=== PATIENT | male | born 1950 | race Hispanic/Latino ===

== ENCOUNTER 2020-09-05 00:30 | Inpatient (IN) | payer OTHER ==
[2020-09-05 01:00] LABS: #Basophils 0.1 thou/uL (0.0-0.2); #Eosinphils 0.2 thou/uL (0.0-0.7); #Lymphocytes 2.2 thou/uL (1.20-3.40); #Monocytes 0.6 thou/uL (0.11-0.59); #Neutrophils 6.9 thou/uL (1.40-6.50); %Basophils 0.9 % (0.0-1.0); %Eosinophils 1.5 % (0.0-10.0); %Lymphocytes 22.5 % (21.0-51.0); %Monocytes 6.2 % (0.0-10.0); Hemoglobin 14.4 g/dL (14.0-18.0); Mean Corpuscular HGB CONC 33.1 g/dL (32.0-36.0); Mean Corpuscular Hemoglobin 29.7 pg (27.0-31.0); Mean Corpuscular Volume 89.7 fL (78.0-98.0); Mean Platelet Volume 9.6 fL (7.4-10.4); Platelet Count 220 thou/uL (130-400); RBC Distribution Width 12.8 % (11.5-14.5); Red Blood Cell (RBC) Count 4.83 mill/uL (4.70-6.10)
[2020-09-05 01:09] LABS: INR-International Normal Ratio 1.1; Prothrombin Time 14.8 sec (12.0-14.7)
[2020-09-05 01:24] LABS: Chloride 101 mmol/L (98-107); Potassium 4.8 mmol/L (3.5-5.1); Sodium 139 mmol/L (136-145)
[2020-09-05 01:28] LABS: Albumin 3.9 g/dL (3.4-4.8)
[2020-09-05 01:29] LABS: Calcium 8.9 mg/dL (7.8-10.44)
[2020-09-05 01:30] LABS: Glucose 289 mg/dL (83-110)
[2020-09-05 01:31] LABS: Carbon Dioxide 26 mmol/L (23-31); Globulin 3.9 g/dL (2.4-3.5); Protein, Total 7.8 g/dL (5.8-8.1)
[2020-09-05 01:32] LABS: Bilirubin, Total 0.5 mg/dL (0.2-1.2)
[2020-09-05 01:33] LABS: Alkaline Phosphatase 101 U/L (40-110); Calc. Creatinine Clearance 0 mL/min (70-130)
[2020-09-05 01:34] LABS: BUN (Urea Nitrogen) 23 mg/dL (8.4-25.7)
[2020-09-05 01:35] LABS: AST (SGOT) 136 U/L (5-34)
[2020-09-05 01:36] LABS: ALT (SGPT) 35 U/L (8-55)
[2020-09-05] MEDS ORDERED: Ondansetron PF 4 MG/2 ML Vial IVP PRN (01:39)
[2020-09-05] MEDS ORDERED: Acetaminophen 325 MG TAB PO PRN (01:39)
[2020-09-05] MEDS ORDERED: Nitroglycerin 0.4 MG TAB (25 Tab Bottle) SL PRN (01:39)
[2020-09-05] MEDS ORDERED: Ondansetron ODT 4 MG TAB PO PRN (01:39)
[2020-09-05] MEDS ORDERED: Acetaminophen 650 MG Suppository PR PRN (01:39)
[2020-09-05 01:45] LABS: Anion Gap 17 mmol/L (10-20)
--- NOTE | 2020-09-05 01:45 | PDOC.HHP ---
Hospitalist HPI - History of Present Illness chest pain History of Present Illness: Case of an 70y/o male with a pmhx of cad, atrial fibrillation, DM, hld copd and htn who comes to hospital due to chest pain. patient states he was on his usual state of health until today when he started with some restrosternal chest pain 8/10 on intensity that radiated to both arm associated with sob, denies palpitatios or diaphoresis. At the ED patient was evaluated and diagnosed with a nstemi for which hospitalist was called for further evaluation and management. Hospitalist ROS - Review of Systems All other systems reviewed; all pertinent +/- noted in HPI/Subj Hospitalist History - Past Surgical History Past Surgical History: reports: Cholecystectomy, CABG - Family History Family History: reports: diabetes mellitus, hypertension - Social History Smoking Status: Former smoker Alcohol: reports: None Drugs: reports: none Living Situation: With Family - Exam General Appearance: NAD, awake alert Eye: PERRL, anicteric sclera ENT: normocephalic atraumatic, no oropharyngeal lesions Neck: supple, symmetric, no JVD, no thyromegaly Heart: RRR, no murmur, no gallops Respiratory: CTAB, no wheezes, no rales Gastrointestinal: soft, non-tender, non-distended Extremities: no cyanosis, no clubbing, no edema Skin: normal turgor, no lesions, no rashes Neurological: cranial nerve grossly intact, normal sensation to touch Musculoskeletal: normal tone, normal strength, no muscle wasting Psychiatric: normal affect, normal behavior, A&O x 3 Hospitalist Results - Labs Result Diagrams: 09/05/20 00:52 09/05/20 00:52 Lab results: WBC 10.0 thou/uL (4.8-10.8) 09/05/20 00:52 Hgb 14.4 g/dL (14.0-18.0) 09/05/20 00:52 Hct 43.4 % (42.0-52.0) 09/05/20 00:52 MCV 89.7 fL (78.0-98.0) 09/05/20 00:52 Plt Count 220 thou/uL (130-400) 09/05/20 00:52 Neutrophils % 69.0 % (42.0-75.0) 09/05/20 00:52 Sodium 139 mmol/L (136-145) 09/05/20 00:52 Potassium 4.8 mmol/L (3.5-5.1) 09/05/20 00:52 Chloride 101 mmol/L (98-107) 09/05/20 00:52 Carbon Dioxide 26 mmol/L (23-31) 09/05/20 00:52 BUN 23 mg/dL (8.4-25.7) 09/05/20 00:52 Creatinine 1.51 mg/dL (0.7-1.3) H 09/05/20 00:52 Glucose 289 mg/dL (83-110) H 09/05/20 00:52 Calcium 8.9 mg/dL (7.8-10.44) 09/05/20 00:52 Total Bilirubin 0.5 mg/dL (0.2-1.2) 09/05/20 00:52 AST 136 U/L (5-34) H 09/05/20 00:52 ALT 35 U/L (8-55) 09/05/20 00:52 Alkaline Phosphatase 101 U/L (40-110) 09/05/20 00:52 Serum Total Protein 7.8 g/dL (5.8-8.1) 09/05/20 00:52 Albumin 3.9 g/dL (3.4-4.8) 09/05/20 00:52 Hospitalist H&P A/P - Problem (1) NSTEMI (non-ST elevated myocardial infarction) Code(s): I21.4 - NON-ST ELEVATION (NSTEMI) MYOCARDIAL INFARCTION Status: Acute (2) HTN (hypertension) Code(s): I10 - ESSENTIAL (PRIMARY) HYPERTENSION Status: Acute (3) Diabetes Code(s): E11.9 - TYPE 2 DIABETES MELLITUS WITHOUT COMPLICATIONS Status: Acute (4) CAD (coronary artery disease) Code(s): I25.10 - ATHSCL HEART DISEASE OF [place] CORONARY ARTERY W/O ANG PCTRS Status: Acute (5) Atrial fibrillation Code(s): I48.91 - UNSPECIFIED ATRIAL FIBRILLATION Status: Acute (6) HLD (hyperlipidemia) Code(s): E78.5 - HYPERLIPIDEMIA, UNSPECIFIED Status: Acute - Plan Plan: 70y/o male w the stated pmhx who present with nstemi nstemi - ekg w/o st ischemic changes - initial troponin 0.04 f/u 2.9 - started on cad protective medication with beta bonifacio acei, statin and AC w elliquis will switch to lovenox for possible LHC - cardiology consulted - 2d echo - cardiac monitoring - starting protective medication w beta block,acei statin + asa dm - long acting insulin - acc+ss atrial fibrillation - in adequate vr - on AC w elliquis, will switch to lovenox for now
[2020-09-05] MEDS ORDERED: Nitroglycerin 2% Ointment 1 INCH/1 GM Packet ONE (02:19)
[2020-09-05] MEDS ORDERED: Aspirin 325 MG TAB PO SCH (02:30)
[2020-09-05] MEDS ORDERED: Sodium Chloride 0.9% 1,000 ML IV SCH (04:00)
[2020-09-05] MEDS ORDERED: Dextrose 50% Abboject 50 ML SYRINGE SLOW IVP PRN (04:53)
[2020-09-05] MEDS ORDERED: Dextrose 5% in Water 1,000 ML IV PRN (04:53)
[2020-09-05] MEDS ORDERED: HumaLOG 300 UNITS/3 ML VIAL SC PRN (04:53)
[2020-09-05 05:47] LABS: Hemoglobin A1c 8.1 % (4.0-6.0)
[2020-09-05 06:03] LABS: Cardiac Risk 4.3 (Less than 4.5)
[2020-09-05] MEDS ORDERED: Carvedilol 3.125 MG TAB PO SCH (08:00)
[2020-09-05] MEDS ORDERED: HumaLOG 300 UNITS/3 ML VIAL ONE (08:56)
[2020-09-05] MEDS ORDERED: Enoxaparin Sodium 100 MG/ML SYRINGE SC SCH (09:00)
[2020-09-05] MEDS ORDERED: Aspirin 325 mg Enteric Coated Tablet PO SCH (09:00)
[2020-09-05] MEDS ORDERED: Insulin Glargine 50 UNITS in Pre-Filled Syringe 1 EACH SC SCH ×2 (09:00→21:00)
[2020-09-05] MEDS ORDERED: Enoxaparin Sodium 100 MG/ML SYRINGE ONE (09:43)
[2020-09-05] MEDS ORDERED: Communication Order-Pharmacy FS SCH (11:15)
--- NOTE | 2020-09-05 12:03 | CON ---
DATE OF CONSULTATION: 09/05/2020 INDICATIONS FOR CONSULTATION: A 70-year-old gentleman with a yuv-SY-[id number] elevation myocardial infarction. HISTORY OF PRESENT ILLNESS: This is a very unfortunate 70-year-old gentleman, who has had a history of coronary artery disease in the past. He underwent quadruple bypass in 2003, at which time, he had a myocardial infarction. He had been doing very well since his bypass surgery and denied any pain until yesterday. He was sitting at home apparently yesterday and developed a sudden onset of sharp stabbing chest pain which radiated across his chest. He became short of breath. He has had some coughing recently with some shortness of breath. He started coughing and he took some cough syrup and then about 5 minutes later when the chest pain started and radiated to his chest and shoulders. He presented to the emergency room at [place], where cardiac enzymes were slightly elevated at 0.041, the second set was 2.97, then he was transferred to [facility] in [place] and here the CPK MB is 15. EKG still showed a right bundle branch block, but no acute ST-segment changes and the chest pain had resolved. At this time, he remains stable. He has no chest pain. The another set of the enzymes are still pending. Last year, he had an episode of bronchitis and pneumonia and also had an episode of atrial fibrillation. He did undergo ablation of the atrial fibrillation and has remained in sinus since that time. PAST MEDICAL HISTORY: Significant for coronary artery disease, insulin-dependent diabetes, hypercholesterolemia, hypertension, COPD. He has had what appears to be an ablation of a left lower extremity vein or venous ablation. He had bypass surgery in 2003 with quadruple bypass, uncertain as to which vessels are bypassed. He has had a cholecystectomy. He has had right ankle surgery. He has some questionable history of a clotting disorder. He had myocardial infarction in 2003. SOCIAL HISTORY: There is no history of alcohol or tobacco abuse. He is a retired sales warehouse driver. He is . FAMILY HISTORY: Noncontributory. ALLERGIES: HE IS SUPPOSEDLY ALLERGIC TO ROSUVASTATIN, IS NOT TAKING ANY CHOLESTEROL MEDICINES AT THIS TIME. MEDICATIONS: His list of medications prior to admission, his home medications include, 1. Albuterol. 2. Fluticasone. 3. . 4. He also takes omeprazole. 5. Edarbyclor 40 mg b.i.d. 6. Aspirin 81 mg a day. 7. He takes Eliquis 5 mg b.i.d. 8. Cholecalciferol. 9. Cyanocobalamin. 10. Furosemide 40 mg a day. 11. Gemfibrozil, he takes 600 mg a day. 12. Hydralazine 50 mg b.i.d. 13. Loratadine 10 mg a day. 14. He takes insulin with FlexPen 25 units before each meal. 15. He also takes detemir insulin long-acting 88 units in the morning and 94 units in the evening. REVIEW OF SYSTEMS: He wears glasses. He has significant sinus drainage. He complains of shortness of breath. Occasional chest discomfort as noted, but usually he has been doing quite stable. He has had lower extremity edema. Otherwise, 12-point review of systems unremarkable. PHYSICAL EXAMINATION: GENERAL: Reveals an elderly gentleman, in no acute distress. VITAL SIGNS: Blood pressure is 156/72. Heart rate is in the 70s, it shows a sinus rhythm with a right bundle-branch block and left posterior fascicular block. HEENT: Shows head to be normocephalic and atraumatic. Carotid pulses are present. There were no bruits. CHEST: Clear to auscultation without rales, rhonchi, or wheezing. CARDIOVASCULAR: Revealed a regular rate and rhythm with normal S1, S2. I cannot hear an S3 nor an S4. No other any significant murmurs, heaves, thrills, bruits, or rubs. ABDOMEN: Shows morbid obesity with positive bowel sounds. No organomegaly or masses were noted. EXTREMITIES: Femoral pulses are present. Extremities showed no clubbing or cyanosis. He does have some lower extremity edema, mainly around the ankle areas. Pedal pulses are difficult to palpate. NEUROLOGIC: The patient appears to be fully intact without any gross focal motor deficits. LABORATORY DATA: Shows a WBC of 10, hemoglobin 14.4, platelet count was 220,000. BNP was 307. Hemoglobin A1c is 8.1. Troponin I as noted above. Sodium is 139, potassium 4.8, BUN was 23 with a creatinine of 1.51. Blood sugar was 289 with LDL of 80. EKG shows right bundle branch block, left posterior fascicular block, occasional PVCs, and a first-degree AV heart block. IMPRESSION: 1. A 70-year-old gentleman with eov-[id number]-[id number] elevation myocardial infarction, who is status post bypass surgery in 2003. At this time, he remains stable. His EKG does not show any acute ST-segment changes at this time. We will continue to monitor the cardiac enzymes. He probably will best be served by undergoing a cardiac catheterization once he is more stable and we will try to give IV fluids to decrease the risk of nephrotoxicity from the contrast material since his creatinine is 1.5, earlier the creatinine was actually more elevated and has some improvement already, previously in the emergency room in [place] creatinine was 1.69. We will start him on some IV fluids or encourage fluids and plan for cardiac catheterization on Tuesday to eventually evaluate his coronary artery status since he has had a [id number]-RG-[id number] elevation myocardial infarction. We will also obtain an echocardiogram for evaluation of left ventricular systolic function. 2. History of diabetes. Apparently, this is very poorly controlled. He has been somewhat noncompliant with medicines or with his diet. 3. Hypertension. He has had significant problems with hypertension. This is obviously not under very good control. He said his average blood pressure is 165/70. We will need to try to reinstate his medications and see if we can find to lower his blood pressure. 4. Dyslipidemia. At this time, the LDL level is reasonable at 80. Would prefer it will be certainly less than 70 with diabetes, but it at least is reasonable with 80. 5. History of coronary artery disease and most likely he has suffered a [id number]-GH-[id number] elevation myocardial infarction. Again, we will plan for cardiac catheterization on Tuesday. 6. Chronic obstructive pulmonary disease, he uses inhalers. We will continue these medicines. Please note that the patient did have an episode in the emergency room. It was felt to be possible torsades. However, on close evaluation of the EKG and the tracings, there is evidence of QRS not torsades. We will continue to monitor the patient very carefully. Also, [facility]. He has recently moved to [place] from [place] and most likely we will try to find new physicians in this area. 7. History of atrial fibrillation, which was treated with an ablation. At this time, he remains in sinus. There is no indication of atrial fibrillation at this time. Job ID: [id number]
[2020-09-05 12:37] LABS: SARS-CoV-2 MS2 Positive; SARS-CoV-2 N Gene Negative; SARS-CoV-2 S Gene Negative; SARS-CoV-2 by NAA Not Detected (NotDetected); SARS-CoV-2 orf1ab Negative
[2020-09-05 12:42] LABS: Troponin I 37.399 ng/mL (< 0.028)
--- NOTE | 2020-09-05 19:04 | PDOC.DS.DS ---
Provider - Provider Date of Admission: 09/05/20 03:26 Date of Discharge: 09/05/20 Admitting Provider: Ruben Maciel Primary Care Physician: [facility], [place] Course - Hospital Course Hospital Course: This is a 70-year-old male patient for history of A. fib, currently treated status post CABG in 2003 who was transferred from [place] on account of NSTEMI. At [place] he was noted to have right bundle branch block with elevated troponin 0 0.04 with repeat at 2.9. At presentation he had troponin elevated to 15 and repeat was 37.39 He was started on Lovenox and cardiology evaluated with plans to do cardiac catheterization once he stabilizes. However prior to transition here the ID had been contacted and it was noted that patient had a bed. Since he is on ER hold here decision was made to transfer him to ID where he has a bed for further management. On evaluation patient was essentially pain-free, with stable vitals and was deemed stable enough to discharge. Patient was discharged to ID in [place] Resuscitation Status: 09/05/20 01:39 Resuscitation Status Routine Resuscitation Status: FULL: Full Resuscitation - Labs Lab Results: 09/05/20 00:52 09/05/20 00:52 Abnormal Lab Results - Last 48 hrs 09/05/20 00:52: PT 14.8 H, APTT 44.0 H 09/05/20 00:52: Troponin I 15.032 H* 09/05/20 00:52: Creatinine 1.51 H, AST 136 H, Globulin 3.9 H, Albumin/Globulin Ratio 1.0 L 09/05/20 00:52: Neutrophils # 6.9 H, Monocytes # 0.6 H 09/05/20 00:52: B-Natriuretic Peptide 307.7 H 09/05/20 05:14: Triglycerides 163 H 09/05/20 05:14: Hemoglobin A1c 8.1 H 09/05/20 12:01: Troponin I 37.399 H* - Physical Exam Physical Exam: The patient was seen and examined on the day of discharge. Problem - Discharge Plan Assessment: NSTEMI We will start him on Lovenox/aspirin Transfer to [facility] for further management. Dyslipidemia Continue statins COPD Is not in acute exacerbation We will need further monitoring. Plan - Discharge Medications Allergies: rosuvastatin [From Crestor] Allergy (Unverified 09/05/20 02:26) - Follow up Plan Referrals: [facility] [Primary Care Provider] - Disposition: HOME Quality - Care Measures CORE MEASURES:: AMI, N/A - Stroke/TIA Did you prescribe antithrombotic therapy?: Yes Did you prescribe anticoagulant for A Fib/Flutter?: No Did you prescribe a statin medication?: Yes
[2020-09-05] MEDS ORDERED: Atorvastatin Calcium 40 MG TAB PO SCH (21:00)
[2020-09-06] MEDS ORDERED: Amlodipine 5 MG TAB PO SCH (09:00)
== END 2020-09-05 17:05 | disposition short-term general hospital (02) | DRG 282 ==
LOC: ERS 00:30 → ERHOLD 01:00
PROVIDERS: ADMIT Internal Medicine; ATTEND Family Medicine
DX: I21.4 Non-ST elevation (NSTEMI) myocardial infarction (principal); I45.10 Unspecified right bundle-branch block; Z20.822 Contact with and (suspected) exposure to COVID-19; I48.91 Unspecified atrial fibrillation; I25.10 Atherosclerotic heart disease of native coronary artery without angina pectoris; E78.5 Hyperlipidemia, unspecified; J44.9 Chronic obstructive pulmonary disease, unspecified; I10 Essential (primary) hypertension; F43.10 Post-traumatic stress disorder, unspecified; E78.00 Pure hypercholesterolemia, unspecified; E11.65 Type 2 diabetes mellitus with hyperglycemia; Z90.49 Acquired absence of other specified parts of digestive tract; Z95.1 Presence of aortocoronary bypass graft; Z83.3 Family history of diabetes mellitus; Z82.49 Family history of ischemic heart disease and other diseases of the circulatory system; Z87.891 Personal history of nicotine dependence; I25.2 Old myocardial infarction; Z79.899 Other long term (current) drug therapy; Z79.4 Long term (current) use of insulin; Z88.8 Allergy status to other drugs, medicaments and biological substances
CPT/HCPCS: 36415; 36416; 80053; 80061; 83036; 83880; 84484; 85025; 85610; 85730; 87635; 93005; J1650; J1815; U0003